=== PATIENT | male | born 1960 | race Caucasian/White ===

== ENCOUNTER 2016-10-03 15:18 | Emergency (ER) | payer MEDICARE, OTHER ==
[2016-10-03 15:21] VITALS: BP 154/86; PULSE 64; RESP 20; TEMP 97.8
--- NOTE | 2016-10-03 15:51 | ED ---
General Adult HPI - General Chief complaint: ENT Stated complaint: Ear Pain Time Seen by Provider: 10/03/16 15:26 Source: patient, RN notes reviewed Mode of arrival: ambulatory Limitations: no limitations - History of Present Illness Initial comments: Patient is a 56-year-old male who presents emergency room today with a chief complaint of increased pressure and pain to the right ear that started approximately 2 AM this morning. Patient states that he has had infections in the past and this feels similar. He denies any other complaints associated symptoms. Patient denies any recent fever, chills, shortness of breath, chest pain, back pain, abdominal pain, nausea or vomiting, numbness or tingling, dysuria or hematuria, constipation or diarrhea, headaches or visual changes, or any other complaints. - Related Data Home Medications Medication Instructions Recorded Confirmed Enalapril [Vasotec] 5 mg PO QAM 08/11/14 08/01/15 LORazepam [Ativan] 1 mg PO BID PRN 08/11/14 08/01/15 Primidone [Mysoline] 250 mg PO TID 08/11/14 08/01/15 Synthroid(Unk Dose) 0.75 mg PO QAM 08/11/14 08/01/15 busPIRone HCL [Buspar] 10 mg PO TID 08/11/14 08/01/15 Polyethylene Glycol 3350 [Miralax] 255 gm PO DAILY 08/14/14 08/01/15 Psyllium Husk (with Sugar) 1 tbsp PO DAILY 06/21/15 08/01/15 [Metamucil Powder] Previous Rx's Medication Instructions Recorded Docusate [Colace] 100 mg PO BID #30 capsule 06/27/15 HYDROcodone/APAP 7.5-325MG [[place] 1 each PO Q4H PRN #40 tab 06/27/15 7.5-325] Cephalexin [Keflex] 250 mg PO Q6HR 7 Days 08/02/15 Ibuprofen [Motrin] 800 mg PO Q6HR PRN #30 tab 08/02/15 Acetaminophen-Codeine 300-30mg 1 tab PO Q6H #10 tablet 07/06/16 [Tylenol #3] Cephalexin [Keflex] 500 mg PO Q12HR 7 Days 07/06/16 Amoxicillin 500 mg PO Q8H 10 Days 10/03/16 Allergies Allergy/AdvReac Type Severity Reaction Status Date / Time No Known Allergies Allergy Verified 10/03/16 15:21 Review of Systems ROS Statement: Those systems with pertinent positive or pertinent negative responses have been documented in the HPI. ROS Other: All systems not noted in ROS Statement are negative. Past Medical History Past Medical History: Hypertension, Thyroid Disorder Additional Past Medical History / Comment(s): Constipation. HX occ blood stools ". HX INJ LT KNEE. CURRENT ING HERNIA. OCC SL EDEMA FEET. History of Any Multi-Drug Resistant Organisms: None Reported Past Surgical History: Hernia Repair, Orthopedic Surgery Additional Past Surgical History / Comment(s): LT KNEE ARTHROSCOPY X2. COLONOSCOPY. Past Anesthesia/Blood Transfusion Reactions: No Reported Reaction Past Psychological History: Anxiety, Panic Disorder, PTSD Additional Psychological History / Comment(s): Panic Attacks. SERVED IN [employer]. Smoking Status: Current every day smoker Past Alcohol Use History: None Reported Additional Past Alcohol Use History / Comment(s): started smoking at age 17, QUIT 8 DAYS AGO. Past Drug Use History: None Reported - Past Family History Mother Family Medical History: No Reported History General Exam - General Exam Comments Initial Comments: General: The patient is awake and alert, in no distress, and does not appear acutely ill. Eye: Pupils are equal, round and reactive to light, extra-ocular movements are intact. No nystagmus. There is normal conjunctiva bilaterally. No signs of icterus. Ears, nose, mouth and throat: There are moist mucous membranes and no oral lesions. increased swelling and effusion of the right ear. Left TM clear. Neck: The neck is supple, there is no tenderness or JVD. Cardiovascular: There is a regular rate and rhythm. No murmur, rub or gallop is appreciated. Respiratory: Lungs are clear to auscultation, respirations are non-labored, breath sounds are equal. No wheezes, stridor, rales, or rhonchi. Musculoskeletal: Normal ROM, no tenderness. Strength 5/5. Sensation intact. Pulses equal bilaterally 2+. Neurological: A&O x 3. CN II-XII intact, There are no obvious motor or sensory deficits. Coordination appears grossly intact. Speech is normal. Skin: Skin is warm and dry and no rashes or lesions are noted. Psychiatric: Cooperative, appropriate mood & affect, normal judgment. Limitations: no limitations Course Vital Signs 10/03/16 15:19 Temperature 97.8 F Pulse Rate 64 Respiratory 20 Rate Blood Pressure 154/86 O2 Sat by Pulse 98 Oximetry Medical Decision Making - Medical Decision Making Patient be treated with amoxicillin for right otitis media. Disposition Clinical Impression: Acute otitis media Disposition: HOME SELF-CARE Condition: Good Instructions: Otitis Media (ED) Additional Instructions: Please use medication as discussed. Please follow-up with family doctor in the next 2 days of symptoms have not improved. Please return to emergency room if the symptoms increase or worsen or for any other concerns. Prescriptions: Amoxicillin 500 mg PO Q8H 10 Days Time of Disposition: 15:50
== END 2016-10-03 16:04 | disposition home or self-care (01) ==
LOC: EC 15:18
DX: H66.91 Otitis media, unspecified, right ear (principal); I10 Essential (primary) hypertension; E07.9 Disorder of thyroid, unspecified; F41.9 Anxiety disorder, unspecified; F41.0 Panic disorder [episodic paroxysmal anxiety]; F43.10 Post-traumatic stress disorder, unspecified; F17.200 Nicotine dependence, unspecified, uncomplicated; Z79.52 Long term (current) use of systemic steroids; Z79.899 Other long term (current) drug therapy
CPT/HCPCS: 99282

== ENCOUNTER → 2016-12-12 | Outpatient (CLI) | payer MEDICARE, OTHER ==
--- NOTE | 2016-12-12 16:16 | CT ---
EXAMINATION TYPE: CT brain wo con DATE OF EXAM: 12/12/2016 4:04 PM COMPARISON: NONE HISTORY: Headache, left arm weakness CT DLP: 1153 mGycm Automated exposure control for dose reduction was used. FINDINGS: Central structures are midline. There is no evidence of hydrocephalus. There is asymmetry in the size of the lateral ventricles, a normal variant. There is no mass effect, midline shift or intracranial blood. Visualized portions of the paranasal sinuses and mastoids are clear. No depressed skull fracture is s een. IMPRESSION: NO ACUTE INTRACRANIAL ABNORMALITY.
== END | disposition home or self-care (01) ==
LOC: RADCTMAIN 15:28
PROVIDERS: ATTEND Family Medicine
DX: R51 Headache (principal)
CPT/HCPCS: 70450

== ENCOUNTER → 2017-02-05 | Outpatient (CLI) | payer MEDICARE, OTHER ==
--- NOTE | 2017-02-05 12:03 | NM ---
EXAMINATION TYPE: NM hepatobiliary w EF DATE OF EXAM: 02/05/2017 COMPARISON: NONE HISTORY: Right upper quadrant pain, R10.11 TECHNIQUE: After the intravenous administration of 5.5 mCi Tc 99m Mebrofenin hepatobiliary scintigrap hy is performed. Immediate images post injection. FINDINGS: There is satisfactory initial accumulation of tracer by the liver. The gallbladder is visualized wit hin 8 minutes. The small bowel activity is noted on delayed images. At one hour 8 ounces of oral en sure plus is given to mimic CCK and gallbladder ejection fraction is calculated at 85 %, in the scot l range. Therefore there is no scintigraphic evidence of cystic or common bile duct obstruction to s uggest acute cholecystitis or gallbladder dyskinesia. IMPRESSION: Gallbladder ejection fraction is 85%. No cystic duct obstruction. Delayed visualization o f small bowel questionable significance.
== END | disposition home or self-care (01) ==
LOC: RADNMMAIN 09:31
PROVIDERS: ATTEND Family Medicine
DX: R10.11 Right upper quadrant pain (principal)
CPT/HCPCS: 78226; A9537

== ENCOUNTER → 2017-03-06 | Outpatient (CLI) | payer MEDICARE, OTHER ==
--- NOTE | 2017-03-06 15:47 | CT ---
EXAMINATION TYPE: CT abdomen pelvis w con DATE OF EXAM: 03/06/2017 COMPARISON: NONE HISTORY: 57-year-old male RUQ pain mainly after eating x1-2 years. TECHNIQUE: Contiguous axial scanning of the abdomen and pelvis following administration of 100 ml Omn ipaque 300 IV contrast. Delayed images through the kidneys and coronal/sagittal reconstructions perf ormed. CT DLP: 1595 mGycm Automated exposure control for dose reduction was used. FINDINGS: The heart is normal size without pericardial effusion. Minimal patchy inferior lingular atelectasis. No pleural effusion. Liver is enlarged measuring 20.6 cm craniocaudal. The main portal vein is patent. No biliary ductal d ilatation. Gallbladder, adrenal glands, kidneys, spleen, and mildly atrophic pancreas show no gross abnormality. Moderate atherosclerotic plaque calcifications throughout the abdominal aorta with ectasia of the dis david abdominal aorta 2.6 cm and the right common iliac artery at 1.8 cm. No dilated small bowel, free fluid, or free air. Scattered nonenlarged mesenteric lymph nodes. A bord blair enlarged 7 mm left common iliac chain lymph node is noted and is nonspecific. Oral contrast has progressed to the splenic flexure. No pericolonic inflammatory change. Circumferential bladder wall thickening. Prostate gland measures 3.6 cm wide. No abnormal fluid colle ction in the pelvis or pelvic lymphadenopathy seen. Bones: No osseous destructive process. Mild multilevel degenerative disc disease throughout the lumba r spine. IMPRESSION: 1. HEPATOMEGALY AT 20.6 CM CRANIOCAUDAL. 2. CIRCUMFERENTIAL BLADDER WALL THICKENING COULD REPRESENT CHRONIC BLADDER WALL HYPERTROPHY OR CYSTIT IS. CLINICALLY CORRELATE. 3. ECTATIC DISTAL ABDOMINAL AORTA (2.6 CM) AND RIGHT COMMON ILIAC ARTERY (1.8 CM).
== END | disposition home or self-care (01) ==
LOC: RADCTMAIN 14:07
PROVIDERS: ATTEND Family Medicine
DX: R16.0 Hepatomegaly, not elsewhere classified (principal); N32.89 Other specified disorders of bladder; I77.811 Abdominal aortic ectasia; I77.89 Other specified disorders of arteries and arterioles
CPT/HCPCS: 74177; Q9967

== ENCOUNTER 2017-08-06 15:36 | Emergency (ER) | payer OTHER, MEDICARE ==
[2017-08-06 15:59] VITALS: RESP 18
[2017-08-06] MEDS ORDERED: HYDROcodone/APAP 5-325MG 1 EACH TAB PO STA (16:04)
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
[2017-08-06 17:18] VITALS: BP 138/84; PULSE 65; TEMP 97
== END 2017-08-06 17:23 | disposition home or self-care (01) ==
LOC: EC 15:36
DX: S13.9XXA Sprain of joints and ligaments of unspecified parts of neck, initial encounter (principal); S09.90XA Unspecified injury of head, initial encounter; R40.2412 Glasgow coma scale score 13-15, at arrival to emergency department; I10 Essential (primary) hypertension; E07.9 Disorder of thyroid, unspecified; F41.9 Anxiety disorder, unspecified; F17.200 Nicotine dependence, unspecified, uncomplicated; Z79.899 Other long term (current) drug therapy; V43.52XA Car driver injured in collision with other type car in traffic accident, initial encounter; Y92.410 Unspecified street and highway as the place of occurrence of the external cause
CPT/HCPCS: 70450; 72125; 99284

== ENCOUNTER → 2017-09-23 | Outpatient (CLI) | payer OTHER, MEDICARE ==
--- NOTE | 2017-09-23 14:59 | NM ---
EXAMINATION TYPE: NM bone/joint limited DATE OF EXAM: 09/23/2017 COMPARISON: NONE HISTORY: Pain in left foot TECHNIQUE: After the intravenous administration of 26.9 mCi Tc 99m MDP. Images acquired 3 hours pos t injection. Multiple views of bilateral feet are submitted. Uptake present in the left midfoot as well as the metatarsophalangeal joints of the first digits, int erphalangeal joints of the first digits and ankles. Soft tissue uptake within normal limits. IMPRESSION: Findings likely are due to osteoarthritic changes, posttraumatic changes not excluded randoplh ecially in the mid left foot. Consider plain film, CT or MRI correlation.
== END | disposition home or self-care (01) ==
LOC: RADNMMAIN 07:24
PROVIDERS: ATTEND Family Medicine
DX: M79.672 Pain in left foot (principal); Z98.890 Other specified postprocedural states
CPT/HCPCS: 78300; A9503

== ENCOUNTER → 2017-12-17 | Outpatient (CLI) | payer OTHER, MEDICARE | END | disposition home or self-care (01) | LOC: LABWHC1 13:41 | PROVIDERS: ATTEND Anesthesiology | DX: Z01.818 Encounter for other preprocedural examination (principal) | CPT/HCPCS: 93005 ==

== ENCOUNTER 2018-04-02 09:54 | Day surgery (SDC) | payer MEDICARE, OTHER ==
[2018-03-31 10:10] VITALS: BMI 25.0
[~2018-04-02 09:54] MED LIST: LACTATED RINGERS 1,000 ML IV SCH; LIDOCAINE 1% 20 ML VIAL (10MG/ML) FOR IV START INTRADERMA PRN; MIDAZOLAM 2 MG/2 ML VIAL IV PRN
[2018-04-02 11:07] VITALS: TEMP 98.7
[2018-04-02] MEDS ORDERED: PROPOFOL 10 MG/ML 20 ML VIAL IV ONE (11:29)
--- NOTE | 2018-04-02 11:44 | P.PCN ---
Date of Procedure: 04/02/18 Procedure(s) Performed: BRIEF HISTORY: Patient is a 58-year-old pleasant male, scheduled for an elective colonoscopy as a part of variation of intermittent rectal bleeding and chronic constipation. PROCEDURE PERFORMED: Colonoscopy. PREOPERATIVE DIAGNOSIS: Chronic constipation and intermittent rectal bleeding. IV sedation per Anesthesia. PROCEDURE: After informed consent was obtained, the patient, was brought into the endoscopy unit. IV sedation was administered by Anesthesia under continuous monitoring. Digital rectal examination was normal. Initially the Olympus CF- 160 flexible video colonoscope was then inserted in the rectum, gradually advanced into the cecum without any difficulty. Careful examination was performed as the scope was gradually being withdrawn. Ileocecal valve and the appendiceal orifice were visualized and appeared normal. Prep was excellent. Mucosa of the cecum, ascending colon, transverse colon, descending colon, sigmoid colon, and rectum appeared normal. Retroflexion was performed in the rectum and small internal hemorrhoids were seen. The patient tolerated the procedure well. IMPRESSION: Normal-appearing colon from rectum to cecum with no evidence of colorectal neoplasia. Small internal hemorrhoids. RECOMMENDATIONS: Findings of this examination were discussed with the patient as well as his family. He was advised to be a high-fiber diet and take fiber supplements on a regular basis. He'll be seen in office in 3-4 weeks..
[2018-04-02 11:51] VITALS: RESP 16
[2018-04-02 12:25] VITALS: BP 143/74; PULSE 49
== END 2018-04-02 13:20 | disposition home or self-care (01) ==
LOC: ORWHC2ENDO 09:54
PROVIDERS: ATTEND Internal Medicine Gastroenterology
DX: K64.8 Other hemorrhoids (principal); I10 Essential (primary) hypertension; F17.210 Nicotine dependence, cigarettes, uncomplicated; E07.9 Disorder of thyroid, unspecified; Z79.890 Hormone replacement therapy; Z79.899 Other long term (current) drug therapy; K62.5 Hemorrhage of anus and rectum
CPT/HCPCS: 45378; J2704

== ENCOUNTER → 2018-07-13 | Outpatient (CLI) | payer MEDICARE, OTHER ==
--- NOTE | 2018-07-13 13:45 | XR ---
EXAMINATION TYPE: XR chest 2V DATE OF EXAM: 07/13/2018 COMPARISON: NONE TECHNIQUE: PA and lateral views submitted. HISTORY: Weight loss FINDINGS: The lungs are clear and there is no pneumothorax, pleural effusion, or focal pneumonia. Hyperexpans ion lungs suggestive COPD. Surgical change overlying the cervical spine. No overt failure. Mild hyper trophic and degenerative change of the spine. IMPRESSION: 1. No acute process. Correlate for COPD.
== END | disposition home or self-care (01) ==
LOC: RADXRMAIN 13:09
PROVIDERS: ATTEND Family Medicine
DX: R63.4 Abnormal weight loss (principal)
CPT/HCPCS: 71046

== ENCOUNTER → 2019-08-19 | Outpatient (CLI) | payer MEDICARE, OTHER ==
--- NOTE | 2019-08-19 11:13 | US ---
EXAMINATION TYPE: US abdomen complete DATE OF EXAM: 08/19/2019 COMPARISON: CT abdomen and pelvis March 06, 2017 CLINICAL HISTORY: R16.0 hepatomegaly. Hepatomegaly EXAM MEASUREMENTS: Liver Length: 16.3 cm Gallbladder Wall: .2 cm CBD: .6 cm Spleen: 11.3 cm Right Kidney: 12.6 x 4.6 x 5.2 cm Left Kidney: 11.8 x 5.3 x 4.4 cm Pancreas: wnl Liver: wnl Gallbladder: wnl Evidence for sonographic Gomez's sign: No CBD: wnl Spleen: wnl Right Kidney: wnl Left Kidney: wnl Upper IVC: wnl Abd Aorta: wnl The visualized liver is homogenous. The intrahepatic portion of the IVC and proximal abdominal aorta are within normal limits. There is no evidence of cholelithiasis. Common bile duct is unremarkable . The visualized portions of the pancreas are homogenous. The spleen is unremarkable. Kidneys are symmetric and free of hydronephrosis. No concerning renal lesions are seen. IMPRESSION: Stable prominent right hepatic lobe without hepatomegaly. No new or acute findings eviden t.
== END ==
LOC: RADUSWWP 10:31
PROVIDERS: ATTEND Family Medicine
DX: R16.0 Hepatomegaly, not elsewhere classified (principal)
CPT/HCPCS: 76700

== ENCOUNTER → 2019-09-15 | Outpatient (CLI) | payer MEDICARE, OTHER ==
--- NOTE | 2019-09-15 15:04 | CTL ---
EXAMINATION TYPE: CT Low Dose Lung DATE OF EXAM ORDERED: 09/15/2019 HISTORY: Personal history tobacco use. Lung cancer screening CT DLP: [address] CTDI: 2.14 mGy Automated exposure control for dose reduction was used. SCREENING VISIT: 1 COMPARISON: Chest x-ray 07/13/2018 TECHNIQUE: Low dose computed tomography scan was performed through the chest at 1 mm thick sections a nd reconstructed images in the coronal plane at [address] DIAGNOSTIC QUALITY: Satisfactory FINDINGS: LUNG NODULES: None. LUNGS: COPD: Severity: Mild Fibrosis: Severity: None Lymph nodes: Normal Other findings: RIGHT PLEURAL SPACE: Effusion: None Calcification: None Thickening: None Pneumothorax: Not present LEFT PLEURAL SPACE: Effusion: None Calcification: None Thickening: None Pneumothorax: Not present HEART: Heart Size: Small Coronary calcification: None Pericardial effusion: Not present OTHER FINDINGS: Upper abdomen: Unremarkable Bony thorax: Within normal limits Supraclavicular region: Unremarkable Other: Anterior cervical fusion noted the lower cervical spine. Root of the aorta is borderline measu ring approximately 4 cm IMPRESSION: Negative FOLLOW UP CT CHEST RECOMMENDATION: [address] LUNG RAD: 1
== END | disposition home or self-care (01) ==
LOC: RADCTMAIN 13:47
PROVIDERS: ATTEND Nurse Practitioner Acute Care
DX: Z12.2 Encounter for screening for malignant neoplasm of respiratory organs (principal); F17.210 Nicotine dependence, cigarettes, uncomplicated

== ENCOUNTER 2020-01-20 15:11 | Emergency (ER) | payer MEDICARE, OTHER ==
[2020-01-20 15:20] VITALS: BP 146/86; PULSE 65; RESP 18; TEMP 98
[2020-01-20] MEDS ORDERED: LIDOCAINE 1% INJ 10MG/ML (20 ML MDV) SQ ONE (15:49)
--- NOTE | 2020-01-20 16:29 | ED ---
General Adult HPI - General Chief complaint: Skin/Abscess/Foreign Body Stated complaint: rectal abscess Time Seen by Provider: 01/20/20 15:24 Source: patient, RN notes reviewed Mode of arrival: ambulatory Limitations: no limitations - History of Present Illness Initial comments: 59-year-old male with a past medical history of hypertension, constipation presents to the emergency department for a chief complaint of abscess to the buttock. Patient has had multiple abscesses on the buttock over the past year. Patient states this abscess started about a week ago. Patient went to urgent care and they did not want to drain it so sent him here to the emergency room. Patient denies fevers or chills. Denies abdominal pain. Patient has been using a soap his surgeon gave him for these problems. Patient has no other complaints at this time including shortness of breath, chest pain, abdominal pain, nausea or vomiting, headache, or visual changes. - Related Data Home Medications Medication Instructions Recorded Confirmed Enalapril [Vasotec] 20 mg PO DAILY 08/06/17 04/02/18 LORazepam [Ativan] 1 mg PO BID 08/06/17 04/02/18 Levothyroxine Sodium 100 mcg PO DAILY 08/06/17 04/02/18 Primidone [Mysoline] 250 mg PO BID 08/06/17 04/02/18 Sildenafil Citrate [Viagra] 100 mg PO DAILY PRN 08/06/17 04/02/18 busPIRone HCL 10 mg PO TID 03/31/18 04/02/18 Previous Rx's Medication Instructions Recorded Sulfamethoxazole/Trimethoprim 1 each PO BID #20 tablet 01/20/20 [Bactrim DS 800-160 mg] Allergies Allergy/AdvReac Type Severity Reaction Status Date / Time No Known Allergies Allergy Verified 01/20/20 15:20 Review of Systems ROS Statement: Those systems with pertinent positive or pertinent negative responses have been documented in the HPI. ROS Other: All systems not noted in ROS Statement are negative. Past Medical History Past Medical History: Hypertension, Thyroid Disorder Additional Past Medical History / Comment(s): Constipation. HX occ blood stools". OCC SL EDEMA FEET. History of Any Multi-Drug Resistant Organisms: None Reported Past Surgical History: Hernia Repair, Orthopedic Surgery Additional Past Surgical History / Comment(s): LT KNEE ARTHROSCOPY X2. COLONOSCOPY. Past Anesthesia/Blood Transfusion Reactions: No Reported Reaction Past Psychological History: Anxiety, Panic Disorder, PTSD Smoking Status: Current every day smoker Past Alcohol Use History: None Reported Past Drug Use History: None Reported - Past Family History Mother Family Medical History: No Reported History General Exam Limitations: no limitations General appearance: alert, in no apparent distress Head exam: Present: atraumatic, normocephalic, normal inspection Eye exam: Present: normal appearance, PERRL, EOMI. Absent: scleral icterus, conjunctival injection, periorbital swelling ENT exam: Present: normal exam, mucous membranes moist Neck exam: Present: normal inspection. Absent: tenderness, meningismus, lymphadenopathy Respiratory exam: Present: normal lung sounds bilaterally. Absent: respiratory distress, wheezes, rales, rhonchi, stridor Cardiovascular Exam: Present: regular rate, normal rhythm, normal heart sounds. Absent: systolic murmur, diastolic murmur, rubs, gallop, clicks GI/Abdominal exam: Present: soft, normal bowel sounds. Absent: distended, tenderness, guarding, rebound, rigid Rectal exam: Present: other (Patient has a abscess noted perianally. This does not extend in the anus from my examination.) Course Vital Signs 01/20/20 15:16 Temperature 98 F Pulse Rate 65 Respiratory 18 Rate Blood Pressure 146/86 O2 Sat by Pulse 100 Oximetry Procedures - [place] Protocol (Time Out) Procedure Performed:: Incision and drainage Performing Provider: Ilir Wyatt Nurse: Destiny Tipton Timeout Date: 01/20/20 Timeout Time: 16:15 Patient Identification (2 identifiers required): Verbal, Arm Band Patient/Legal Therapeutic Massage Technician has Confirmed: Identity, Site, Procedure, Consent Site: anus Site Marked: Yes Final Confirmation: Procedure, Site, Laterality, Patient Position, Confirmed w/Provider - Incision & Drainage Consent Obtained: verbal consent Indication: Abscess Site: other (Anus) Size (cm): 1 Anesthetic Used: lidocaine 1% Amount (mLs): 3 I&D Cleaning Method: Chloroprep Sterile Field Used?: Yes Scalpel Used: #11 I&D Drainage Obtained: Pus Patient Tolerated Procedure: well, no complications Medical Decision Making - Medical Decision Making I did discuss discussed with patient that there is concern for possible perirectal abscess and I do recommend further workup before we incise and drain this however he refuses. States he has had these before and just wants it drained. I did do this procedure. This was successful. Patient was prescribed Bactrim. I recommended he return for any worsening symptoms like fevers or abdominal pain and follow-up with his surgeon and primary care. Disposition Clinical Impression: Abscess Disposition: HOME SELF-CARE Condition: Good Instructions (If sedation given, give patient instructions): Abscess Incision and Drainage (ED), Abscess (ED) Additional Instructions: Please follow-up with your surgeon as well as primary care. Please take antibiotic as directed. This was prescribed to her pharmacy. Please return here for any worsening symptoms including fever or abdominal pain. Please do warm soapy soaks in the bath to try to facilitate drainage from the abscess. Prescriptions: Sulfamethoxazole/Trimethoprim [Bactrim DS 800-160 mg] 1 each PO BID #20 tablet Is patient prescribed a controlled substance at d/c from ED?: No Referrals: Eliel Meeks DO [Primary Care Provider] - 1-2 days Time of Disposition: 16:28
== END 2020-01-20 16:40 | disposition home or self-care (01) ==
LOC: EC 15:11
DX: K61.1 Rectal abscess (principal); I10 Essential (primary) hypertension; E07.9 Disorder of thyroid, unspecified; F41.0 Panic disorder [episodic paroxysmal anxiety]; F17.200 Nicotine dependence, unspecified, uncomplicated; Z79.899 Other long term (current) drug therapy; Z79.890 Hormone replacement therapy
CPT/HCPCS: 99283; 46050; J2001

== ENCOUNTER → 2020-02-14 | Outpatient (CLI) | payer OTHER, MEDICARE ==
--- NOTE | 2020-02-14 12:51 | FL ---
EXAMINATION TYPE: FL barium swallow w video DATE OF EXAM: 02/14/2020 CLINICAL HISTORY: 60-year-old male status post ACDF in 2018, R09.89, chokes when swallowing. TECHNIQUE: Deglutition study is performed utilizing thin liquid barium,, barium pudding, and barium coated cracker. Total fluoroscopy time: 1 minute 13 seconds. Total images: None. Real-time fluoroscopy support was provided to speech pathology. COMPARISON: None. FINDINGS: Status post C5-C7 ACDF. The oral and pharyngeal phases show satisfactory initiation and propagation w ith all modalities tested. Normal mastication is seen with solid modalities tested. There is transi ent penetration. No other penetration or aspiration is seen. Mild residuals within the vallecula and piriform sinuses. IMPRESSION: 1. Status post C5-C7 ACDF with mild vallecular and piriform sinus residuals. 2. Transient penetration with thin liquids. No other penetration or aspiration seen. 3. Please refer to speech therapist notes for further details if necessary.
== END | disposition home or self-care (01) ==
LOC: RADFLMAIN 11:45
PROVIDERS: ATTEND Family Medicine
DX: R09.89 Other specified symptoms and signs involving the circulatory and respiratory systems (principal)
CPT/HCPCS: 74230

== ENCOUNTER → 2020-03-13 | Outpatient (CLI) | payer MEDICARE, OTHER ==
--- NOTE | 2020-03-14 16:06 | NM ---
EXAMINATION TYPE: NM bone 3 phase DATE OF EXAM: 03/13/2020 COMPARISON: CT low dose lung 09/15/2019 HISTORY: Left arm pain. Triple phase bone scintigraphy was performed following the injection of 23 mCi Tc 99m MDP. Immediate images and 3.5 hours post injection images acquired. FINDINGS: There is no significant abnormal accumulation of radiotracer to suggest metastatic disease to the bon e. There is activity in right-sided axillary and subpectoral region lymph nodes seen on blood flow an d pool phases. IMPRESSION: 1. No scintigraphic evidence of osseous metastatic disease or acute osseous process. 2. Activity within the right axillary and subpectoral lymph nodes may be physiologic, as injection wa s via the patient's right arm and these lymph nodes are not enlarged on 09/15/2019 CT comparison.
== END | disposition home or self-care (01) ==
LOC: RADNMMAIN 07:56
PROVIDERS: ATTEND Family Medicine
DX: M79.602 Pain in left arm (principal)
CPT/HCPCS: 78315; A9503

== ENCOUNTER → 2020-12-06 | Outpatient (CLI) | payer MEDICARE, OTHER ==
--- NOTE | 2020-12-06 14:53 | CT ---
EXAMINATION TYPE: CT abdomen pelvis w con DATE OF EXAM: 12/06/2020 COMPARISON: CT abdomen and pelvis March 06, 2017 HISTORY: Right sided abdominal pain. CT DLP: 885.3 mGycm, Automated Exposure Control for Dose Reduction was Utilized. CONTRAST: CT scan of the abdomen and pelvis is performed with oral and with IV Contrast, patient injected with 100ml mL of Isovue 300. FINDINGS: LUNG BASES: No significant abnormality is appreciated. LIVER/GB: Stable mild hepatomegaly. PANCREAS: No significant abnormality is seen. SPLEEN: No significant abnormality is seen. ADRENALS: No significant abnormality is seen. KIDNEYS: No significant abnormality is seen. BOWEL: Oral contrast reaches level of rectum on current study. No suspicious small or large bowel dil atation. Appendix within normal limits in the right pelvis. PROSTATE/SEMINAL VESICLES: No gross abnormality seen. LYMPH NODES: No greater than 1cm abdominal or pelvic lymph nodes are appreciated. OSSEOUS STRUCTURES: Moderate disc space narrowing L4-L5 level with mild to moderate spurring. OTHER: Moderate mixed plaque in the abdominal aorta extends into branch vessels. High branching poin t to the celiac artery just above level of diaphragmatic hiatus without significant narrowing. 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 Otherwise no new or acute findings present to accoun t for patient's symptoms.
== END | disposition home or self-care (01) ==
LOC: RADCTMAIN 12:33
PROVIDERS: ATTEND Family Medicine
DX: R10.11 Right upper quadrant pain (principal)
CPT/HCPCS: 74177; Q9967

== ENCOUNTER → 2021-01-02 | Outpatient (CLI) | payer MEDICARE, OTHER ==
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
== END ==
LOC: SLEEP 11:40
PROVIDERS: ATTEND Internal Medicine
DX: G47.33 Obstructive sleep apnea (adult) (pediatric) (principal); I10 Essential (primary) hypertension; R35.1 Nocturia; F41.0 Panic disorder [episodic paroxysmal anxiety]; E03.9 Hypothyroidism, unspecified; E78.5 Hyperlipidemia, unspecified; Z98.890 Other specified postprocedural states; Z87.891 Personal history of nicotine dependence; Z79.890 Hormone replacement therapy; Z79.899 Other long term (current) drug therapy
CPT/HCPCS: 99202

== ENCOUNTER 2021-04-23 11:32 | Day surgery (SDC) | payer MEDICARE, OTHER ==
[2021-04-18 15:49] VITALS: BMI 24.1
[~2021-04-23 11:32] MED LIST changes: +DEXAMETHASONE SOD PHOSPHATE 4 MG/ML 1 ML VIAL IV ONE; +HYDROmorphone 0.5 MG/0.5 ML SYRINGE IVP PRN; +LIDOCAINE 1% (10MG/ML) FOR IV START INTRADERMA PRN; -LIDOCAINE 1% 20 ML VIAL (10MG/ML) FOR IV START INTRADERMA PRN; +ONDANSETRON 4 MG/2 ML VIAL IVP ONE; +fentaNYL (PF) 50 MCG/ML 2 ML AMP IVP PRN; +metroNIDAZOLE-NS PMX 500 MG in SALINE 1 100ML.BAG IVPB PRN
[2021-04-23] MEDS ORDERED: MIDAZOLAM 2 MG/2 ML VIAL ONE (12:47)
[2021-04-23] MEDS ORDERED: LIDOCAINE 1% INJ 10MG/ML (20 ML MDV) ONE (12:47)
[2021-04-23] MEDS ORDERED: SUCCINYLCHOLINE CHLORIDE 100 MG/5 ML SYR IV ONE (12:47)
[2021-04-23] MEDS ORDERED: PROPOFOL 10 MG/ML 20 ML VIAL IV ONE (12:47)
[2021-04-23] MEDS ORDERED: fentaNYL (PF) 50 MCG/ML 2 ML AMP ONE (12:47)
--- NOTE | 2021-04-23 12:57 | P.GSHP ---
History of Present Illness H&P Date: 04/23/21 61-year-old male presents today for pilonidal cystectomy. He has had a diagnosis for multiple months and has continued on and off drainage. He has been on antibiotics for this issue. He states this has affected him on and off for many years. - Review of Systems All systems: negative Past Medical History Past Medical History: GERD/Reflux, Hypertension, Thyroid Disorder Additional Past Medical History / Comment(s): occ. lower extr. edema. IBS. H. Pylori diagnosed 04/21/21 History of Any Multi-Drug Resistant Organisms: None Reported Past Surgical History: Hernia Repair, Orthopedic Surgery Additional Past Surgical History / Comment(s): LT KNEE ARTHROSCOPY X2 Past Anesthesia/Blood Transfusion Reactions: No Reported Reaction Past Psychological History: Anxiety, Panic Disorder, PTSD Additional Psychological History / Comment(s): [place] Smoking Status: Former smoker Past Alcohol Use History: None Reported Additional Past Alcohol Use History / Comment(s): started smoking at age 17, 3 cig/day Past Drug Use History: None Reported - Past Family History Mother Family Medical History: No Reported History Medications and Allergies Home Medications Medication Instructions Recorded Confirmed Type Enalapril [Vasotec] 5 mg PO DAILY 08/06/17 04/18/21 History LORazepam [Ativan] 1 mg PO BID 08/06/17 04/18/21 History Levothyroxine Sodium 75 mcg PO DAILY 08/06/17 04/18/21 History Primidone [Mysoline] 250 mg PO BID 08/06/17 04/18/21 History busPIRone HCL 10 mg PO TID 03/31/18 04/18/21 History Citalopram Hydrobromide 40 mg PO DAILY 04/18/21 04/18/21 History [Citalopram HBr] Omeprazole 20 mg PO DAILY 04/18/21 04/18/21 History Amoxicillin 2 tab PO Q12HR 04/22/21 04/22/21 History Clarithromycin [Biaxin] 500 mg PO Q12HR 04/22/21 04/22/21 History Lansoprazole [Prevacid] 30 mg PO BID 04/22/21 04/22/21 History Allergies Allergy/AdvReac Type Severity Reaction Status Date / Time No Known Allergies Allergy Verified 04/18/21 15:49 Surgical - Exam Osteopathic Statement: *. No significant issues noted on an osteopathic structural exam other than those noted in the History and Physical/Consult. Vital Signs Temp Pulse Resp BP Pulse Ox 97.0 F L 68 17 140/75 98 04/23/21 12:08 04/23/21 12:08 04/23/21 12:08 04/23/21 12:04/23/21 12:08 - General well nourished, no distress - Neck trachea midline - Respiratory normal respiratory effort - Abdomen Abdomen: soft, non tender - Integumentary Pilonidal cyst with no active drainage at this time - Psychiatric oriented to time, oriented to person, oriented to place Assessment and Plan Plan: Plan is for pilonidal cystectomy. Risks, benefits and alternatives were provided to the patient. He is aware that this will result with an open wound with daily packing changes based on the depth of the wound. Wound care instructions were provided to the patient and the patient's family. All questions were answered. Further recommendations after procedure.
[2021-04-23] MEDS ORDERED: BUPIVACAINE (PF) 0.5% 30 ML VIAL SQ ONE ×2 (13:21)
[2021-04-23] MEDS ORDERED: METHYLENE BLUE 10 MG/ML (10 ML VIAL) MISCELLANE ONE (13:27)
--- NOTE | 2021-04-23 13:41 | P.OP ---
Date of Procedure: 04/23/21 Preoperative Diagnosis: Pilonidal cyst Postoperative Diagnosis: Pilonidal cyst Procedure(s) Performed: Pilonidal cystectomy Anesthesia: TIMOTHY Surgeon: Cici Braun Pathology: other (Pilonidal cyst) Condition: stable Disposition: same day Indications for Procedure: 61-year-old male presents today for her pilonidal cystectomy. He has had on and off drainage from a chronic site for years. He states it has been significantly active over the past few months. Risks, benefits and alternatives were provided to the patient. He did provide consent. Operative Findings: Overall, superficial pilonidal cyst lateral to the midline Description of Procedure: The patient was brought to the operative suite placed in supine position on the operating table. Sedation was provided and the patient underwent endotracheal intubation. He was then placed in prone position. He was prepped and draped in regular sterile fashion. The pilonidal cyst was noted to the right lateral to the midline. Injection of methylene blue was made through the sinus tract. E lliptical incision was made over the site and dissection was carried towards the fascia. The methylene blue was noted to stay superficial to the incision. The analysis was completely excised. Hemostasis was maintained with cautery. Irrigation was placed in the wound. The wound was then packed with iodoform gauze. Sterile dressing was applied.
[2021-04-23 13:58] VITALS: TEMP 97.6
[2021-04-23 14:04] VITALS: RESP 16
[2021-04-23 14:54] VITALS: BP 146/80; PULSE 63
== END 2021-04-23 15:14 | disposition home or self-care (01) ==
LOC: OR 11:32
PROVIDERS: ATTEND Surgery
DX: L05.91 Pilonidal cyst without abscess (principal); K21.9 Gastro-esophageal reflux disease without esophagitis; I10 Essential (primary) hypertension; F41.9 Anxiety disorder, unspecified; F43.10 Post-traumatic stress disorder, unspecified; F41.0 Panic disorder [episodic paroxysmal anxiety]; Z87.891 Personal history of nicotine dependence; E07.9 Disorder of thyroid, unspecified; Z79.899 Other long term (current) drug therapy; J45.909 Unspecified asthma, uncomplicated
CPT/HCPCS: 88304; 11770; J2250; J1100; J0690; J2405; J2001; Q9968; J3010; J0330; J2704

== ENCOUNTER → 2022-06-12 | Outpatient (CLI) | payer MEDICARE, OTHER ==
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
--- NOTE | 2022-06-12 16:03 | P.PN ---
Subjective DATE: 06/12/2022 To [facility] 62 year old gentleman had been followed in sleep center for treatment of severe obstructive sleep apnea hypopnea syndrome. 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 I cannot exclude that exposure to toxic fumes could be participating factor for developing sleep apnea for this patient. Shaheed Salgado MD, PhD, FAASM. Diplomat of [place] [employer], Sleep Medicine Board by [place] [employer] Bookbinder Chief of [facility]
== END | disposition home or self-care (01) ==
LOC: SLEEP 14:06
PROVIDERS: ATTEND Internal Medicine
DX: G47.33 Obstructive sleep apnea (adult) (pediatric) (principal); F17.200 Nicotine dependence, unspecified, uncomplicated; I10 Essential (primary) hypertension; F41.0 Panic disorder [episodic paroxysmal anxiety]; E03.9 Hypothyroidism, unspecified; E78.5 Hyperlipidemia, unspecified; Z98.1 Arthrodesis status
CPT/HCPCS: 99212

== ENCOUNTER → 2023-01-09 | Outpatient (CLI) | payer MEDICARE, OTHER ==
--- NOTE | 2023-01-09 13:36 | US ---
EXAMINATION TYPE: US duplex aorta DATE OF EXAM: 01/09/2023 COMPARISON: NONE CLINICAL INDICATION: Male, 62 years old with history of I71.40 ABDOMINAL AORTIC ANEURYSM, WITHOUT RUP TURE,; AAA TECHNIQUE: Multiple sonographic images of the abdominal aorta are obtained. FINDINGS: EXAM MEASUREMENTS: Abdominal Aorta: Proximal: 2.7x2.9cm Mid: 2.5x2.3cm Distal: 2.8x3.3cm Bifurcation: Rt MARGA: 2.5x2.7cm Lt MARGA:1.0x1.2 LOG CHAIN FEEDER NOTES: Abdominal aorta appears ectatic with aneurysmal dilation of the right common iliac artery IMPRESSION: Ectatic and slightly aneurysmal abdominal aorta measures up to 3.3 cm in diameter. There is additional focal 2.5 cm aneurysm of the right common iliac artery.
== END | disposition home or self-care (01) ==
LOC: RADUSWWP 12:40
PROVIDERS: ATTEND Family Medicine
DX: I71.40 Abdominal aortic aneurysm, without rupture, unspecified (principal); I72.3 Aneurysm of iliac artery
CPT/HCPCS: 93979

== ENCOUNTER → 2023-10-26 | Outpatient (CLI) | payer MEDICARE, OTHER ==
--- NOTE | 2023-10-27 08:11 | NM ---
Nuclear medicine hepatobiliary scan. HISTORY: Pain. DOSAGE: The patient received 8 0z Ensure plus and 5 mCi of Technetium 99m Choletec. FINDINGS: There is normal hepatic extraction. The gallbladder is seen by 20 minutes. . Ejection fr action is 89%. IMPRESSION: 1. No evidence of cholecystitis. 2. Ejection fraction of 89% can occasionally be associated with hyperdynamic gallbladder.
== END | disposition home or self-care (01) ==
LOC: RADNMMAIN 12:58
PROVIDERS: ATTEND Family Medicine
DX: R10.11 Right upper quadrant pain (principal)
CPT/HCPCS: 78226; A9537

== ENCOUNTER → 2023-12-03 | Outpatient (CLI) | payer MEDICARE, OTHER | END | disposition home or self-care (01) | LOC: LABWHC1 15:42 | PROVIDERS: ATTEND Surgery Plastic and Reconstructive Surgery | DX: I11.9 Hypertensive heart disease without heart failure (principal) | CPT/HCPCS: 93005 ==

== ENCOUNTER 2023-12-24 11:58 | Day surgery (SDC) | payer MEDICARE, OTHER ==
[2023-12-21 12:43] VITALS: BMI 25.0
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
[~2023-12-24 11:58] MED LIST changes: -DEXAMETHASONE SOD PHOSPHATE 4 MG/ML 1 ML VIAL IV ONE; +INDOCYANINE GREEN 25 MG VIAL IV STA; -LACTATED RINGERS 1,000 ML IV SCH; -ONDANSETRON 4 MG/2 ML VIAL IVP ONE; +ONDANSETRON 4 MG/2 ML VIAL IVP PRN; -fentaNYL (PF) 50 MCG/ML 2 ML AMP IVP PRN; -metroNIDAZOLE-NS PMX 500 MG in SALINE 1 100ML.BAG IVPB PRN
[2023-12-24] MEDS: LACTATED RINGERS 1,000 ML IV SCH (12:29)
[2023-12-24] MEDS: ACETAMINOPHEN TAB 500 MG TAB PO PRN (12:40)
[2023-12-24] MEDS: DEXAMETHASONE SOD PHOSPHATE 4 MG/ML 1 ML VIAL IV ONE (12:40)
[2023-12-24] MEDS: ONDANSETRON 4 MG/2 ML VIAL IVP ONE (12:40)
[2023-12-24] MEDS: HEPARIN SODIUM,PORCINE 5,000 UNIT/ML 1 ML VIAL SQ PRN (12:40)
[2023-12-24 12:42] LABS: Basophils # (A) 0.1 k/uL (0-0.2); Basophils % (A) 1 %; Eosinophils # (A) 0.1 k/uL (0-0.7); Eosinophils % (A) 2 %; HCT 46.5 % (39.0-53.0); Lymphocytes # (A) 1.5 k/uL (1.0-4.8); Lymphocytes % (A) 15 %; MCH 32.5 pg (25.0-35.0); MCHC 32.3 g/dL (31.0-37.0); MCV 100.6 fL (80.0-100.0); Mean Platelet Volume 7.5; Monocytes # (A) 0.7 k/uL (0-1.0); Monocytes % (A) 7 %; Neutrophils # (A) 7.2 k/uL (1.3-7.7); Neutrophils % (A) 75 %; Platelet Count 294 k/uL (150-450); RBC 4.63 m/uL (4.30-5.90); RDW 13.3 % (11.5-15.5); WBC 9.6 k/uL (3.8-10.6)
[2023-12-24 12:54] LABS: ALT 20 U/L (4-49); African American GFR (CKD) >90 (>60 ml/min/1.73 sqM); Albumin 4.2 g/dL (3.5-5.0); Anion Gap 5 mmol/L; Blood Urea Nitrogen 11 mg/dL (9-20); Calcium 9.6 mg/dL (8.4-10.2); Carbon Dioxide 29 mmol/L (22-30); Chloride 105 mmol/L (98-107); Glucose 79 mg/dL (74-99); Non-African American GFR(CKD) >90 (>60 ml/min/1.73 sqM); Sodium 139 mmol/L (137-145); Total Bilirubin 0.8 mg/dL (0.2-1.3); Total Protein 7.8 g/dL (6.3-8.2)
[2023-12-24 13:02] LABS: AST 31 U/L (17-59); Alkaline Phosphatase 104 U/L (38-126); Potassium 4.4 mmol/L (3.5-5.1)
[2023-12-24] MEDS: LIDOCAINE 1%-EPI 1:100,000 20 ML VIAL SQ ONE ×2 (14:32→14:59)
[2023-12-24] MEDS ORDERED: LABETALOL 5 MG/ML VIAL MDV ONE (14:38)
[2023-12-24] MEDS ORDERED: fentaNYL (PF) 50 MCG/ML 2 ML AMP ONE (14:38)
[2023-12-24] MEDS ORDERED: KETOROLAC 15 MG/ML 1 ML VIAL ONE (14:38)
[2023-12-24] MEDS ORDERED: ROCURONIUM 10 MG/ML (5 ML VIAL) IV ONE (14:38)
[2023-12-24] MEDS ORDERED: GLYCOPYRROLATE 0.2 MG/ML 2 ML VIAL ONE (14:38)
[2023-12-24] MEDS ORDERED: PROPOFOL 10 MG/ML 20 ML VIAL IV ONE (14:38)
[2023-12-24] MEDS ORDERED: NEOSTIGMINE 1 MG/ML 10 ML VIAL ONE (14:38)
[2023-12-24] MEDS ORDERED: MIDAZOLAM 2 MG/2 ML VIAL ONE (14:38)
[2023-12-24] MEDS ORDERED: hydrALAZINE HCL 20 MG/ML 1 ML VIAL ONE (14:38)
[2023-12-24] MEDS ORDERED: LIDOCAINE 1% INJ 10MG/ML (20 ML MDV) ONE (14:38)
[2023-12-24] MEDS ORDERED: SUCCINYLCHOLINE CHLORIDE 200 MG/10 ML VIAL IV ONE (14:38)
[2023-12-24] MEDS ORDERED: HYDROmorphone (PF) 1 MG/ML ONE (14:38)
[2023-12-24] MEDS: IV FLUID CONTINUATION 1,000 ML IV ONE (15:16)
[2023-12-24 16:04] VITALS: RESP 16; TEMP 97.3
[2023-12-24] MEDS: HYDROmorphone 0.5 MG/0.5 ML SYRINGE IVP ONE (16:41)
[2023-12-24 16:55] VITALS: BP 153/77; PULSE 59
--- NOTE | 2023-12-25 11:51 | P.OP ---
Date of Procedure: 12/24/23 Description of Procedure: SURGEON: TIFFANIE BERNARD MD PREOPERATIVE DIAGNOSES: 1. Symptomatic gallstones 2. Depressive disorder 3. Gastroesophageal reflux disease 4. Hypothyroidism 5. Generalized anxiety disorder 6. Hyperlipidemia 7. Posttraumatic stress disorder POSTOPERATIVE DIAGNOSES: 1. Symptomatic gallstones 2. Depressive disorder 3. Gastroesophageal reflux disease 4. Hypothyroidism 5. Generalized anxiety disorder 6. Hyperlipidemia 7. Posttraumatic stress disorder OPERATION: Robotic-assisted da Alexi Xi laparoscopic cholecystectomy, multiport with FIREFLY ESTIMATED BLOOD LOSS: 5 mL. SPECIMENS REMOVED: Gallbladder. COMPLICATIONS: None. OPERATIVE FINDINGS: 1. Liver within normal limits. 2. Increased bleeding along the skin edges due to medications INDICATIONS: The patient is a 63-year-old female who presents with symptomatic gallstones. Robotic assisted laparoscopic approach was described. Benefits and risks of the procedure including but not limited to bleeding, infection, injury to the biliary tree was described. Informed consent was obtained. DESCRIPTION OF PROCEDURE: Patient was brought to the operating room, placed in supine position. After general induction, the abdomen had been prepped and draped in standard sterile fashion. The robotic da Alexi XI system was primed. After a timeout protocol was performed, the patient had been prepped and draped in standard sterile fashion. The patient was injected with indocyanine green. A 5 mm 0 degrees laparoscopic trocar entry was performed along the left upper quadrant. The abdomen insufflated to 15 mmHg pressure which was tolerated well. Diagnostic laparoscopy demonstrated no injury to bowel viscera or mesentery. The liver surface was unremarkable. Next, two 8 mm robotic ports were placed along the right upper abdomen. The camera 8-mm port was maintained along the epigastrium. Another 8 mm port was placed along the left upper abdominal wall after exchanging the 5 mm port. Please note that the ports were placed at least 10 to 15 cm away from the target anatomy of the gallbladder. The robot was docked along the left lateral abdomen. The patient was repositioned in reverse Trendelenburg position. Using a grasper for arm 3, a grasper for arm 4, including hook cautery for arm 1, the robotic system was docked and primed as described. Instruments were interchanged by the banking assistant including hook cautery, Bovie cautery and clip appliers. I had sat at the console. Next attention was brought to the infundibulum and cystic structures. Dome down technique was performed starting from the fundus towards the infundibulum with dissection of the gallbladder from the hepatic fossa. The infundibulum and cystic duct were dissected free from surrounding tissues. The cystic duct was isolated. FIREFLY was used to identify the cystic artery and cystic structures. A critical view of safety was obtained. Large PLASTIC clips were used throughout the entire case. Using a clip medical editor, 2 clips were placed at the junction of the infundibulum and cystic duct. The cystic duct was divided between clips. Next, the cystic artery was similarly clipped and cauterized. Electro-Bovie cautery was used to remove the gallbladder from the hepatic fossa. Hemostasis was checked and found to be adequate. The robot was undocked. I re-scrubbed into the case. Using a 10 mm Endo Catch bag via the left upper quadrant incision, the specimen was removed from the abdominal cavity. All pneumoperitoneum instruments were evacuated from the abdominal cavity. The incisions were reapproximated using 4-0 Monocryl in an interrupted subcuticular fashion. Fascial defects were less than 8 mm in size. Please note along the trocar sites, local anesthetic was placed as a field block prior to insertion of all instruments. Liquid glue was applied to the skin. At the end of the procedure needle, sponge, and instrument count had been verified correct by the surgical appliances salesperson. The patient was transferred to postanesthesia care unit in stable condition. Intraoperative films were shared with the patient's family. Plan - Discharge Summary Discharge Rx Participant: Yes New Discharge Prescriptions: New Cyclobenzaprine [Flexeril] 10 mg PO TID #30 tab Simethicone [Gas-X] 125 mg PO AC-TID PRN #20 capsule PRN Reason: Pain Acetaminophen Tab [Tylenol Tab] 1,000 mg PO Q6HR PRN #30 tablet PRN Reason: Pain Continue LORazepam [Ativan] 1 mg PO BID Enalapril [Vasotec] 5 mg PO QAM Primidone [Mysoline] 250 mg PO BID Levothyroxine Sodium 75 mcg PO QAM busPIRone HCL 10 mg PO TID Omeprazole 20 mg PO QAM Atorvastatin Calcium [Lipitor] 40 mg PO HS Citalopram Hydrobromide [Citalopram HBr] 40 mg PO QAM Discharge Medication List Enalapril [Vasotec] 5 mg PO QAM 08/06/17 [History] LORazepam [Ativan] 1 mg PO BID 08/06/17 [History] Levothyroxine Sodium 75 mcg PO QAM 08/06/17 [History] Primidone [Mysoline] 250 mg PO BID 08/06/17 [History] busPIRone HCL 10 mg PO TID 03/31/18 [History] Citalopram Hydrobromide [Citalopram HBr] 40 mg PO QAM 04/18/21 [History] Omeprazole 20 mg PO QAM 04/18/21 [History] Atorvastatin Calcium [Lipitor] 40 mg PO HS 12/21/23 [History] Acetaminophen Tab [Tylenol Tab] 1,000 mg PO Q6HR PRN #30 tablet 12/24/23 [Rx] Cyclobenzaprine [Flexeril] 10 mg PO TID #30 tab 12/24/23 [Rx] Simethicone [Gas-X] 125 mg PO AC-TID PRN #20 capsule 12/24/23 [Rx] Follow up Appointment(s)/Referral(s): Tiffanie Bernard MD [STAFF PHYSICIAN] - 12/29/23 6:40 pm (TELEHEALTH - DR WILL CALL YOU BETWEEN 9 am to 8 pm) Patient Instructions/Handouts: *[facility] - Managing Your Pain After Surgery Without Opioids, *[facility] - (Anesthesia) Discharge Instructions Outpatient Surgery, Low Fat Diet (DC), Laparoscopic Cholecystectomy (DC) Activity/Diet/Wound Care/Special Instructions: TELEHEALTH - DR WILL CALL YOU BETWEEN 9 am to 8 pm Recommend low-fat diet for the next 2 days. No lifting over 10 pounds in 2 weeks until January 06December shower. No bath tub soaks for two weeks until January 06 Diet as tolerated. Use Tylenol, simethicone scheduled for the next 24-48 hours for best pain relief. Use ice along incisions for today to prevent swelling. Discharge Disposition: HOME SELF-CARE
--- NOTE | 2023-12-25 13:55 | P.PN ---
Progress Note - Text Progress Note Date: 12/25/23 Reviewed patient records regarding still having pain. Patient notified office. New prescription for ibuprofen given and sent to local pharmacy. Left message regarding follow-up.
== END 2023-12-24 17:36 | disposition home or self-care (01) ==
LOC: OR 11:58
PROVIDERS: ATTEND Surgery Plastic and Reconstructive Surgery
DX: K80.10 Calculus of gallbladder with chronic cholecystitis without obstruction (principal); K21.9 Gastro-esophageal reflux disease without esophagitis; E03.9 Hypothyroidism, unspecified; E78.5 Hyperlipidemia, unspecified; F43.10 Post-traumatic stress disorder, unspecified; F41.1 Generalized anxiety disorder; F32.A Depression, unspecified; Z79.890 Hormone replacement therapy; Z79.899 Other long term (current) drug therapy; Z87.891 Personal history of nicotine dependence
CPT/HCPCS: 47563; 88304; 80053; 85025; J2250; J0330; J0360; J1644; J1100; J2710; J0690; J2405; J2001; J3010; J1170 ×2; J1885; J2704; J1920

== ENCOUNTER → 2024-04-25 | Outpatient (CLI) | payer MEDICARE, OTHER ==
--- NOTE | 2024-04-25 11:38 | US ---
EXAMINATION TYPE: US duplex aorta DATE OF EXAM: 04/25/2024 COMPARISON: 01/09/23 CLINICAL INDICATION: Male, 64 years old with history of I77.811 ABDOMINAL AORTIC ECTASIA; aorta ectas ia TECHNIQUE: Multiple sonographic images of the abdominal aorta are obtained. FINDINGS: EXAM MEASUREMENTS: Abdominal Aorta: Proximal: 3.2 x 3.3cm Mid: 3.6 x 3.7cm Distal: 3.3 x 4.4cm Bifurcation: Right Iliac: 3.9 x 3.7cm Left Iliac: 1.4 x 1.5cm FORM BUILDER NOTES: Ectasia seen throughout abdominal aorta. Right common iliac artery is dilated. Le ft common iliac artery has a more normal caliber. Some aneurysmal dilatation in the transverse dimension of the distal abdominal aorta is present. 4.4 cm. IMPRESSION: 1. Abdominal aorta with aneurysmal dilatation in the transverse dimension of 4.4 cm distal abdominal aorta. 2. Remaining abdominal aorta fusiform prominence within the mid to distal abdominal aorta extending i nto the right common iliac artery. [facility], , 04/25/2024 11:36 AM
== END | disposition home or self-care (01) ==
LOC: RADUSWWP 10:45
PROVIDERS: ATTEND Family Medicine
DX: I71.9 Aortic aneurysm of unspecified site, without rupture (principal)
CPT/HCPCS: 93979

== ENCOUNTER → 2024-04-25 | Outpatient (CLI) | payer MEDICARE, OTHER ==
--- NOTE | 2024-04-25 12:35 | CTL ---
EXAMINATION TYPE: CT Low Dose Lung DATE OF EXAM ORDERED: 04/25/2024 HISTORY: 64-year-old male former smoker with a 30 pack-year history, Z12.2, Z8 7.891. Lung cancer scr eening CT DLP: 122.[address] CTDI: 2.8 mGy Automated exposure control for dose reduction was used. SCREENING VISIT: Yearly follow-up COMPARISON: 09/15/2019 TECHNIQUE: Low dose computed tomography scan was performed through the chest at 1 mm thick sections a nd reconstructed images in multiple planes at 1 mm and [address] DIAGNOSTIC QUALITY: Satisfactory FINDINGS: The heart is normal size without pericardial effusion. Ectatic ascending aorta 3.9 cm with conventional arch vessel branching anatomy. Mild aneurysm lower d escending thoracic aorta to 3.1 cm. No thoracic lymphadenopathy by CT size criteria. Mild diffuse bronchial wall thickening. Mild to moderate emphysematous change. Some minimal strandy a telectasis in the lower lungs. No consolidation or pleural effusion. Tiny 3 mm medial right upper lobe pulmonary nodule, axial image 81. Unchanged in retrospect. No suspi cious pulmonary nodule is seen. Visualized upper abdomen with possible partially visualized infrarenal AAA possibly measuring at leas t 3.6 cm. 3.3 cm on 12/06/2020. Dedicated CT abdomen and pelvis further evaluate. Bones: Slight dextroconvexed curvature along the upper third thoracic spine. IMPRESSION: 1. Lung-RADS 2, benign. No new suspicious pulmonary nodules are seen. 2. 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 3. Possibly enlarging infrarenal AAA partially visualized. Estimated to measure at least 3.6 cm. Torsten uring 3.3 cm on the patient's 12/06/2020 CT. Follow-up CT abdomen pelvis for more accurate assessment. CT LUNG RAD AND CT CHEST RECOMMENDATION: Lung-Rad 2 Benign Appearance or Behavior: Continue annual sc reening with LDCT in 12 months. S Modifier (other clinically significant findings): S, contrast-enhanced CT abdomen and pelvis for mo re accurate assessment of potential enlarging AAA. [facility], , 04/25/2024 12:32 PM
== END | disposition home or self-care (01) ==
LOC: RADCTMAIN 10:22
PROVIDERS: ATTEND Internal Medicine Pulmonary Disease
DX: Z12.2 Encounter for screening for malignant neoplasm of respiratory organs (principal); J43.9 Emphysema, unspecified; J44.9 Chronic obstructive pulmonary disease, unspecified; Z87.891 Personal history of nicotine dependence
CPT/HCPCS: 71271